=== PATIENT | male | born 2005 | race Hispanic/Latino ===

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

== ENCOUNTER 2024-06-16 16:26 | Emergency (ER) | payer MEDICAID, SELFPAY ==
[2024-06-16 16:34] VITALS: BP 119/81; PULSE 87; RESP 19; TEMP 36.9; O2SAT 100
--- NOTE | 2024-06-16 16:48 | ED_ITS ---
HPI - Skin/Abscess/Foreign Bdy General Chief complaint: Skin/Abscess/Foreign Body Stated complaint: right pinky finger sore Time Seen by Provider: 06/16/24 16:48 Source: patient Mode of arrival: ambulatory Limitations: no limitations History of Present Illness HPI narrative: 18 year old male presents to express care with complaints of right 5th finger having swelling and redness around the ulnar side of his nail bed since this morning. Patient reports that he pulled some skin off of his nail bed area and squeezed it with some purulent drainage coming from nail bed area Patient reports that his finger is sore and tender to palpation along the ulnar side of nail bed, he states that he has noted increased redness and swelling of right distal 5th finger as day has progressed with no fluctuation of tissue. MD complaint: other (paronychia right 5th finger nail bed ulnar side) Onset (ago): day(s) (this morning) Location: R hand (5th finger nailbed) Severity: moderate Treatments prior to arrival: attempted to drain pus at home Related Data Allergies Allergy/AdvReac Type Severity Reaction Status Date / Time No Known Allergies Allergy Mild Verified 06/16/24 16:33 Review of Systems Review of Systems: CONSTITUTIONAL: Denies fever, chills, or sweats. CARDIOVASCULAR: Denies chest pain, palpitations, or edema. RESPIRATORY: Denies cough or dyspnea. GASTROINTESTINAL: Denies abdominal pain, nausea, vomiting SKIN: Reports redness and swelling with some purulent drainage to ulnar side of nailbed of 5th right finger, no vesicles or pustule noted or present fluctuation of tissue, no pain beyond proportion MUSCULOSKELETAL: Denies myalgia. NEUROLOGIC: Denies headache, numbness All systems reviewed & are unremarkable except as noted in HPI and below PMFSH Past Medical History Medical History Marijuana abuse Smoker Overweight (BMI 25.0-29.9) Acute appendicitis Surgical History Surgical History Hx of appendectomy Social History Social History Smoking status: Current some day smoker Tobacco type: e-cigarettes/vaping Second hand tobacco smoke exposure: No Alcohol intake: never Substance use: current Substance use type: marijuana Lack of Transportation: No Lack of Food: Never True Current Housing: I Have Housing Concerned About Future Housing: No Difficulty Paying Gas/Electric Bills: No Difficulty Paying for Meds: No Currently Unemployed: No Education: High School Diploma/GED Difficulty w/ Childcare or Family Care: No Spiritual care concerns: No Comments At time of signature, agree with nursing past medical, surgical, social and family history. There is no relevant family history pertinent to the presenting complaint Exam Narrative: GENERAL: Well-appearing, well-nourished, and in no acute distress. HEAD: Normocephalic, atraumatic. EYES: PERRLA and EOMI. ENT: Nares clear, no rhinorrhea or epistaxis. Mucous membranes moist. NECK: Supple. no lymphadenopathy CHEST: Clear to auscultation. No respiratory distress. HEART: Regular rate and rhythm. No murmur heard. Normal peripheral pulses. ABDOMEN: Soft, nontender, nondistended, normal active bowel sounds. EXTREMITIES: Normal range of motion. No edema. SKIN: Warm, dry. Erythema, induration, tenderness, to the ulnar side of the right 5th finger nail bed, no acute warmth no vesicle or pustule noted. no tingling or numbness to his right 5th finger NEURO: No focal deficits. Alert and oriented x3. Course Course Emergency Course: Patient is aware of diagnosis, understands and agrees to treatment plan. Anticipatory guidance given. Patient agrees to follow-up as directed and is aware of reasons to seek care at the emergency department. Portions of this record may have been created with voice recognition software Level of Care: Express Care Visit Vital Signs Vital signs: Vital Signs Temperature 36.9 C 06/16/24 16:34 Pulse Rate 87 06/16/24 16:34 Respiratory Rate 19 06/16/24 16:34 Blood Pressure 119/81 06/16/24 16:34 Pulse Oximetry 100 06/16/24 16:34 Oxygen Delivery Room Air 06/16/24 16:34 Temperature 36.9 C 06/16/24 16:34 Pulse Rate 87 06/16/24 16:34 Respiratory Rate 19 06/16/24 16:34 Blood Pressure 119/81 06/16/24 16:34 Pulse Oximetry 100 06/16/24 16:34 Oxygen Delivery Room Air 06/16/24 16:34 Reviewed MDM - Skin/Abscess/Foreign Bdy MDM Narrative Medical decision making narrative: Does not appear at this time to be erythema multiforme, bullous, SJS, TEN; no evidence at this time to suggest RMSF, endocarditis or Lyme disease; patient looks well, nontoxic and is tolerating oral intake; no neurologic signs or symptoms; no headache, photophobia or neck pain; afebrile; appropriate for initial outpatient treatment; discussed the importance of follow-up, patient agrees. Patient does not have history of penetrating trauma, laceration, blunt trauma, recent surgery, immunosuppression, malignancy, obesity, alcoholism, rula icosteroid use. Question cellulitis, necrotizing soft tissue infection, abscess. Differential Diagnosis Differential diagnosis: Likely abscess of skin or subcutaneous tissue, cellulitis, contact dermatitis and other (paronychia right 5th finger) Medical Records Attestation: I reviewed the patient's medical records. Critical Care Time Critical Care Time Critical Care Time: No Discharge Plan Discharge Clinical Impression: Paronychia Patient Disposition: Home Condition: Stable Instructions: Antibiotic Form, Paronychia (ED) Additional Instructions: Soak right 5th finger in warm dial soapy water twice daily, rinse and apply Mupiricin ointment and bandaide watch for increasing infection--redness, swelling, drainage Tylenol or Ibuprofen for any fever or pain follow up with PCP in 7-10 days for a wound check recheck if develop fever, chills, increasing symptom Go to the ER if your symptoms become worse of if ANY new symptoms develop Antibiotic as prescribed take all doses If your symptoms persist, change or worsen significantly before you can contact your personal physician then please, without delay, go to the emergency department for further evaluation. Follow-up with PCP in 7-10 days or sooner if needed Patient Language: Lithuanian Prescriptions: New cephalexin 500 mg capsule 500 mg PO Q8H Qty: 30 0RF mupirocin [Centany] 2 % ointment 1 applic topical BID Qty: 22 0RF Rx Instructions: apply to right 5th finger nail bed 2 times daily after soaking Follow-up/Referrals: PHYSICIAN,SPIDER ASSEMBLER [Primary Care Provider] - Time of Disposition: 17:03 [place] Coma Scale Eyes: Open Verbal: Oriented and Alert Motor: Follows Commands Karmen Coma Total Score: 15
== END 2024-06-16 17:11 | disposition home or self-care (01) ==
PROVIDERS: Emergency Provider Registered Nurse
DX: L03.011 Cellulitis of right finger (principal); F17.290 Nicotine dependence, other tobacco product, uncomplicated; F12.90 Cannabis use, unspecified, uncomplicated
CPT/HCPCS: 99213; G0463

== ENCOUNTER 2024-06-20 19:40 | Emergency (ER) | payer MEDICAID, SELFPAY ==
--- OUTSIDE RECORDS SUMMARY | 2024-06-20 19:43 | XMS_ITS | Clinical Summary ---
Author Organization [address] Address [address] [place] [id number] Care Team Providers Care Aircraft Landing Gear Inspector Name Role Phone Carlos Mckee MD Primary Care Provid er Allergies No known active allergies Medications diclofenac DR (VOLTAREN) 75 mg EC tabletIndicatio ns:Chronic bilateral thoracic back pain Take 1 tablet (75 mg total) by mouth 2 (two) times a day 60 tablet 5 08/09/2022 Active cyclobenzaprine (FLEXERIL) 10 mg tabletIndicatio ns:Chronic bilateral thoracic back pain Take 1 tablet (10 mg total) by mouth nightly as needed (back pain) 30 tablet 2 08/09/2022 Active Active Problems No known active problems Immunizations Immunization Administration Dates Next Due Influenza, Quadrivalent, Spl it, Preservative Free, Intramuscular 12/22/2022 Influenza, Unspecified 11/21/2021(Deferr ed: Patient Refused),11/21/2020(Deferred: Patient Refused) Surgical History Surgery Date Site/Laterality Comments APPENDECTOMY 04/03/2022 Medical History Medical History Date Comments Asthma Grew out of it. Family History Medical History Relation Name Comments ADD / ADHD Brother 1 ADD / ADHD Brother 2 No Known Problems Father Diabetes Maternal Grandmother Kidney disease Maternal Grandmother Carpal tunnel syndrome Mother Alzheimer's disease Paternal Grandmother Relation Name Status Comments Brother 1 Alive Brother 2 Alive Brother 3 Alive Father Alive Maternal Grandfather Alive Maternal Grandmother Alive Mother Alive Paternal Grandfather Paternal Grandmother Social History Tobacco Use Types Packs/Day Years Used Date Smoking Tobacco: Never Smokeless Tobacco: Never Tobacco Cessation:Counseling Given: Not Answered AUDIT-C Answer Date Recorded Q1: How often do you have a drink containing alcohol? Never 08/09/2022 Q2: How many drinks containi ng alcohol do you have on a typical day when you are drinking? Patient does not drink Q3: How often do you have si x or more drinks on one occasion? 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 Gender Identity Not on file Sexual Orientation Not on file Obstetrics History Last Filed Vital Signs Vital Sign Reading Time Taken Comments Blood Pressure 116/72 12/22/2022 3:20 PM CDT Pulse 67 12/22/2022 3:20 PM CDT Temperature 36.5 C (97.7 F) 12/22/2022 3:20 PM CDT Respiratory Rate 16 12/22/2022 3:20 PM CDT Oxygen Saturation 98% 12/22/2022 3:20 PM CDT Inhaled Oxygen Concentration - - Weight 73.8 kg (162 lb 12.8 oz) 12/22/2022 3:20 PM CDT Height 174 cm (5' 8.5 ) 12/22/2022 3:20 PM CDT Body Mass Index 24.39 12/22/2022 3:20 PM CDT Plan of Treatment Health Maintenance Due Date Last Done Comments Hepatitis C Screening 2003 DTaP/Tdap/Td Vaccine (1 - Tdap) 08/20/2014 Varicella Vaccines (1 of 2 - 13+ 2-dose series) 08/20/2016 HPV Vaccines (1 - Male 3-dos e series) 08/20/2018 Meningococcal B Vaccine (1 o f 2 - Standard) 2019 Hepatitis B Screening 08/20/2021 Regular Well Visit/Exam 18-64 08/20/2021 Depression Screening 08/10/2023 08/09/2022, 08/09/2022 Influenza Vaccine (#1) 2023 12/22/2022 Meningococcal Vaccine Aged Out No nickolas lawrence eligible based on patient's age to complete this topic Pneumococcal vaccine <65 Aged Out No longer eligible based on patient's age to complete this topic Insurance [facility] Care Teams Aircraft Landing Gear Inspector Relationship Specialty Start Date End Date Carlos Mckee MD [address] [place] [address] PCP - General Family Medicine 07/27/22
--- OUTSIDE RECORDS SUMMARY | 2024-06-20 19:43 | XMS_ITS | Referral Summary ---
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
--- NOTE | 2024-06-20 22:16 | PC.NURSE ---
pt name called out twice to be brought back to room. Pt did not respond out to both call outs. Pt left without being seen by provider.
--- OUTSIDE RECORDS SUMMARY | 2024-06-20 22:38 | XMS_ITS | Referral Summary ---
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
--- OUTSIDE RECORDS SUMMARY | 2024-06-20 22:38 | XMS_ITS | Clinical Summary ---
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 Gender Identity Not on file Sexual Orientation [...] Depression Screening 08/10/2023 08/09/2022, 08/09/2022 Influenza Vaccine (Season Ended) 2024 12/22/2022 Meningococcal Vaccine Aged Out No nickolas lawrence eligible based on patient's age to complete this topic Pneumococcal vaccine <65 Aged Out No longer eligible based on patient's age to complete this topic Insurance [facility] Care Teams Process Development Technician Relationship Specialty Start Date End Date Carlos Mckee MD [address] [place] [address] PCP - General Family Medicine 07/27/22
== END 2024-06-20 22:16 | disposition left against medical advice (07) ==
LOC: ANHED 22:36
DX: M79.644 Pain in right finger(s) (principal)
CPT/HCPCS: 99199

== ENCOUNTER 2024-06-21 18:42 | Emergency (ER) | payer MEDICAID, SELFPAY ==
--- NOTE | ~2024-06-21 | XR_ITS ---
XR finger 5th RT min 2V Ordering provider: Shania Rhodes PA-C History: . [Swelling], redness, pain . Comparison: None. FINDINGS: BONES: No acute fracture or dislocation. JOINT SPACES: Normal. SOFT TISSUES: Soft tissue swelling over the fifth metacarpal bone and over the distal phalanx.. IMPRESSION: No acute osseous abnormality. Reviewed, dictated and finalized at location A.
--- OUTSIDE RECORDS SUMMARY | 2024-06-21 18:45 | XMS_ITS | Clinical Summary ---
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
--- OUTSIDE RECORDS SUMMARY | 2024-06-21 18:45 | XMS_ITS | Referral Summary ---
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
[2024-06-21 18:51] VITALS: BP 125/83; PULSE 85; RESP 16; TEMP 36.9; O2SAT 100
[2024-06-21 19:05] VITALS: BP 125/83; PULSE 85; RESP 16; TEMP 36.9; O2SAT 100
--- OUTSIDE RECORDS SUMMARY | 2024-06-21 19:19 | XMS_ITS | Referral Summary ---
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
--- OUTSIDE RECORDS SUMMARY | 2024-06-21 19:19 | XMS_ITS | Clinical Summary ---
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
--- NOTE | 2024-06-21 19:40 | ED_ITS ---
HPI - Skin/Abscess/Foreign Bdy General Chief complaint: Skin/Abscess/Foreign Body Stated complaint: Swelling/redness to right 5th finger Time Seen by Provider: 06/21/24 19:04 Source: patient Mode of arrival: ambulatory Limitations: no limitations History of Present Illness HPI narrative: This is a 18 year old male that presents to the ER for swelling, redness, pain of the right 5th finger. Reports he was seen at urgent care for this and started on oral antibiotics. He has been taking these without relief. Denies fevers. Related Data Allergies Allergy/AdvReac Type Severity Reaction Status Date / Time No Known Allergies Allergy Mild Verified 06/21/24 18:44 Review of Systems 2 Review of Systems: GENERAL: Well-appearing, well-nourished, and in no acute distress. HEAD: Normocephalic, atraumatic. EYES: EOMI. EXTREMITIES: Normal range of motion. Edema and erythema with an area of fluctuance to the right 5th distal phalanx SKIN: Warm, dry, no rash. NEURO: No focal deficits. Alert and oriented x3. PSYCH: Normal mood and affect All systems reviewed & are unremarkable except as noted in HPI and below PMFSH Past Medical History Medical History Marijuana abuse Smoker Overweight (BMI 25.0-29.9) Acute appendicitis Surgical History Surgical History Hx of appendectomy Social History Social History Smoking status: Current some day smoker Tobacco type: e-cigarettes/vaping Second hand tobacco smoke exposure: No Alcohol intake: never Substance use: current Substance use type: marijuana Lack of Transportation: No Lack of Food: Never True Current Housing: I Have Housing Concerned About Future Housing: No Difficulty Paying Gas/Electric Bills: No Difficulty Paying for Meds: No Currently Unemployed: No Education: High School Diploma/GED Difficulty w/ Childcare or Family Care: No Spiritual care concerns: No Course Vital Signs Vital signs: Vital Signs Temperature 98.4 F 06/21/24 18:51 Pulse Rate 85 06/21/24 18:51 Respiratory Rate 16 06/21/24 18:51 Blood Pressure 125/83 06/21/24 18:51 Pulse Oximetry 100 06/21/24 18:51 Oxygen Delivery Room Air 06/21/24 18:51 Temperature 98.4 F 06/21/24 19:05 Pulse Rate 85 06/21/24 19:05 Respiratory Rate 16 06/21/24 19:05 Blood Pressure 125/83 06/21/24 19:05 Pulse Oximetry 100 06/21/24 19:05 Oxygen Delivery Room Air 06/21/24 18:51 MDM - Skin/Abscess/Foreign Bdy Lab Data 06/21/24 20:26 06/21/24 20:26 Labs: Lab Results 06/21/24 Range/Units 20:26 WBC 9.1 (4.5-10.0) K/mm3 RBC 4.48 L (4.6-6.20) M/mm3 Hgb 14.0 D (14.0-18.0) g/dL Hct 42.9 (42.0-52.0) % MCV 95.8 (80-100) fl MCH 31.3 (26-34) pg MCHC 32.6 (32-36) g/dl RDW 11.8 (11.5-14.5) % Plt Count 273 (150-375) k/mm3 MPV 10.4 (7.4-10.4) fl Immature Gran % (Auto) 0.2 (0-0.5) % Neut % (Auto) 59.6 (45.5-73.1) % Lymph % (Auto) 30.5 (18.3-44.2) % [place] % (Auto) 6.3 (2.6-8.5) % Eos % (Auto) 2.4 (0-4.4) % Baso % (Auto) 1.0 (0.2-1.2) % Lymph # (Auto) 2.77 (0.9-3.2) K/mm3 [place] # (Auto) 0.6 (0.1-0.6) K/mm3 Eos # (Auto) 0.2 (0-0.3) K/mm3 Baso # (Auto) 0.1 (0.0-0.1) K/mm3 Abs Immat Gran (auto) 0.02 (0.00-0.031) K/mm3 Absolute Neuts (auto) 5.4 (1.3-6.7) K/mm3 Absolute Nucleated RBC 0.000 (0.0-0.012) K/mm3 Nucleated RBC % 0.0 (0.0-0.2) % ESR 9 (0-20) mm/hr Sodium 138 (137-145) mmol/L Potassium 3.9 (3.4-5.0) mmol/L Chloride 105 (98-107) mmol/L Carbon Dioxide 25 (22-30) mmol/L Anion Gap 8 (4-12) mmol/L BUN 17 (9-20) mg/dL Creatinine 1.03 (0.7-1.3) mg/dL Estim Creat Clear Calc 100 ml/min Estimated GFR > 60 (59 - ) Glucose 88 (65-110) mg/dL Calcium 9.5 (8.4-10.2) mg/dL C-Reactive Protein < 0.5 (<1.0) mg/dL Discharge Plan Discharge Clinical Impression: Felon of finger of right hand Patient Disposition: Home Condition: Stable Instructions: Paronychia (ED) Additional Instructions: Return if symptoms worsen or concerns: any increase in redness, swelling, pain or fever over 101 Take antibiotics as directed. Clean wound with mild soapy water. Apply antibiotic ointment and clean dressing at least twice daily. Follow up with hand surgery. Call in the morning to make an appointment Patient Language: Brazilian Prescriptions: No Action cephalexin 500 mg capsule 500 mg PO Q8H Qty: 30 0RF mupirocin [Centany] 2 % ointment 1 applic topical BID Qty: 22 0RF Rx Instructions: apply to right 5th finger nail bed 2 times daily after soaking Follow-up/Referrals: Padmaja Rodrigues MD [Physician] - PHYSICIAN,DIRECTOR OF STUDENT AID [Primary Care Provider] -
[2024-06-21 20:31] LABS: Basophils Absolute Auto 0.1 K/mm3 (0.0-0.1); Eosinophils Absolute Auto 0.2 K/mm3 (0-0.3); Eosinophils Percent Auto 2.4 % (0-4.4); Hematocrit 42.9 % (42.0-52.0); Immature Granulocyte Absolute 0.02 K/mm3 (0.00-0.031); Immature Granulocyte Percent A 0.2 % (0-0.5); Lymphocytes Absolute Auto 2.77 K/mm3 (0.9-3.2); Lymphocytes Percent Auto 30.5 % (18.3-44.2); Mean Corpuscular HGB Conc 32.6 g/dl (32-36); Mean Corpuscular Hemoglobin 31.3 pg (26-34); Mean Corpuscular Volume 95.8 fl (80-100); Mean Platelet Volume 10.4 fl (7.4-10.4); Monocytes Absolute Auto 0.6 K/mm3 (0.1-0.6); Monocytes Percent Auto 6.3 % (2.6-8.5); Neutrophils Absolute Auto 5.4 K/mm3 (1.3-6.7); Neutrophils Percent Auto 59.6 % (45.5-73.1); Platelet Count Result 273 k/mm3 (150-375); Red Blood Count 4.48 M/mm3 (4.6-6.20); Red Cell Distribution Width 11.8 % (11.5-14.5); White Blood Count 9.1 K/mm3 (4.5-10.0)
[2024-06-21 20:47] LABS: Anion Gap 8 mmol/L (4-12); Blood Urea Nitrogen 17 mg/dL (9-20); CRP < 0.5 mg/dL (<1.0); Calcium 9.5 mg/dL (8.4-10.2); Carbon Dioxide 25 mmol/L (22-30); Chloride 105 mmol/L (98-107); Estimated CRCL calculation 100 ml/min; Estimated Glomerular Filt Rate > 60; Glucose 88 mg/dL (65-110); Potassium 3.9 mmol/L (3.4-5.0); Sodium 138 mmol/L (137-145)
[2024-06-21 20:57] LABS: Erythrocyte Sedimentation Rate 9 mm/hr (0-20)
== END 2024-06-21 21:13 | disposition home or self-care (01) ==
PROVIDERS: Emergency Provider Physician Assistant
DX: L03.011 Cellulitis of right finger (principal); F17.290 Nicotine dependence, other tobacco product, uncomplicated
CPT/HCPCS: 26010; 36415; 73140; 80048; 85025; 85652; 86140; 99283